=== PATIENT | female | born 1970 | race Caucasian/White ===

== ENCOUNTER → 2019-10-26 | Outpatient (CLI) | payer OTHER ==
[~2019-10-26] MED LIST: GADOTERATE 7.5 MMOL/15ML VIAL. IVP ONE
--- NOTE | 2019-10-27 12:04 | RAD ---
INDICATION: Reason: PELVIC MASS, HX OF 2 KIDNEY TRANSPLANTS / Spl. Instructions: 14ML DOTAREM / History: COMPARISON: CT from June 2017 TECHNIQUE: Multiplanar, multisequence MRI images are obtained through the pelvis with and without intravenous contrast. FINDINGS: There is repeat demonstration of a left lower quadrant transplant of the kidney. Degenerative changes of partially visualized lumbar spine which is not formally evaluated. Urinary bladder is largely decompressed. There is a T2 hyperintense masslike structure again seen within the pelvis. This measures approximately 65 x 56 mm and has a multiloculated appearance. Previously measured 70 x 65 mm. A small portion of this measuring up to 13 mm appears T1 hyperintense which could be from proteinaceous content with the rest of the lesion appearing T1 hypointense. There are some enhancing septations identified within the cystic lesion as well as rim enhancement. There is some surrounding enhancing tissue identified but difficult to tell if this is secondary to a solid portion of this cystic mass or if this is secondary to compressed ovarian tissue. There is some adjacent free fluid in the pelvis. IMPRESSION: * Repeat demonstration of complex cystic mass within the pelvis which overall appears slightly decreased in size compared to prior and the previously seen surrounding edema is not seen on the current examination. There is some enhancement of the thin septations as well as some enhancing soft tissue along the periphery. This enhancing soft tissue could either be secondary to a solid enhancing portion of this mass or secondary to compressed ovarian tissue. A cystic ovarian neoplasm remains within the differential given these findings. Continued follow-up will be needed if not removed. Electronically signed by: Dale Amaya MD (10/27/2019 12:01 PM) [id number]
== END | disposition home or self-care (01) ==
LOC: MRI 12:44
PROVIDERS: ATTEND Family Medicine
DX: N83.202 Unspecified ovarian cyst, left side (principal); M47.816 Spondylosis without myelopathy or radiculopathy, lumbar region; R19.00 Intra-abdominal and pelvic swelling, mass and lump, unspecified site; Z94.0 Kidney transplant status
CPT/HCPCS: 72197; A9575